=== PATIENT | female | born 1960 | race Caucasian/White ===

== ENCOUNTER 2016-09-11 14:56 | Emergency (ER) | payer OTHER ==
[~2016-09-11] VITALS: Ht 167.6 cm; Wt 67.0 kg
[2016-09-11 15:02] VITALS: BP 160/98; PULSE 81; RESP 16; TEMP 97.7; O2SAT 98
[2016-09-11 15:17] LABS: BLOOD, URINE TRACE (NEG); GLUCOSE,URINE NEG (NEG); KETONE, URINE NEG (NEG); NITRITE,URINE NEG (NEG); PH, URINE 6.5 (5.0-8.5)
[2016-09-11] MEDS ORDERED: LISI2.5T3 PO (15:17)
[2016-09-11] MEDS ORDERED: CARV3.12 PO (15:17)
[2016-09-11] MEDS ORDERED: ASPI1TAB69 PO (15:17)
[2016-09-11 15:21] LABS: URINE COLOR STRAW (YELLW/STRAW)
[2016-09-11 15:24] LABS: COMMENT (UR) CULT NOT INDICATED; CULTURE IF INDICATED CULT NOT INDICATED; SQUAMOUS EPITHELIAL CELL URINE 0-2 /hpf (0-5)
[2016-09-11] MEDS ORDERED: MACR100C2 PO (15:31)
--- NOTE | 2016-09-11 15:37 | PD ---
HPI Chief Complaint: Complaint Time Seen by Provider: 15:32 Travel History International Travel<30 days: No Contact w/Intl Traveler<30days: No Traveled to known affect area: No History of Present Illness HPI Patient is a 56-year-old female with a history of CAD and is a former smoker presenting with chief complaint of dysuria. Begin this morning. She has suprapubic pressure and increased urinary urgency and frequency. Denies pyuria , which area, vaginal being and discharge. Denies fever, chills, nausea and vomiting. No back or flank pain. She denies any history of bladder disorders. She states she's had UTIs several times today only start this way. Last one was several years ago and she required hospitalization. She recently relocated here and does not currently have a PCP. PFSH Past Medical History Hx Anticoagulant Therapy: Yes (ECOTRIN DAILY) Cardiovascular Problems: Yes ([place]) Diabetes: No Diminished Hearing: No Hypertension: Yes Immunizations Current: Yes Myocardial Infarction: Yes Tetanus Vaccination: > 5 Years Influenza Vaccination: No ?: Not Menopausal: Yes Dilation and Curettage (D&C): Yes Social History Alcohol Use: No Tobacco Use: No Substance Use: No Allergies-Medications (Allergen,Severity, Reaction): Coded Allergies: Codeine (Verified Allergy, Severe, 09/11/16) Uncoded Allergies: METHAGENE (Allergy, Severe, 09/11/16) Reported Meds & Prescriptions Reported Meds & Active Scripts Active Reported Carvedilol 3.125 Mg Tab 3.125 Mg PO DAILY Lisinopril 2.5 Mg Tab 1.25 Mg PO DAILY Aspirin 81 Mg Tabdr 81 Mg PO DAILY Review of Systems Except as stated in HPI: all other systems reviewed are Neg Physical Exam Narrative GENERAL: Well-developed and well-nourished adult female in no acute distress. SKIN: Warm and dry. Good turgor without tenting. HEAD: Normocephalic and atraumatic. ENT: Buccal mucosa pink and moist. Oropharynx free of erythema, tonsillar hypertrophy, masses, swelling, asymmetry and exudates. Uvula midline and airway patent. NECK: Supple, no midline tenderness, crepitus or step-offs. Trachea midline, no JVD. No cervical or facial lymphadenopathy. CARDIOVASCULAR: Regular rate and rhythm without murmurs, rubs, clicks or gallops. Radial and posterior tibial pulses 2+ bilaterally. No pedal edema. RESPIRATORY: Clear to auscultation bilaterally with symmetrical rise and fall, no distress or use of accessory muscles. GASTROINTESTINAL: Non-tender, non-distended. Normal bowel sounds all 4 quadrants. No masses or organomegaly present. Negative bilateral CVA tenderness. MUSCULOSKELETAL: No gait disturbances. Patient freely moving all four extremities spontaneously. Extremities without clubbing, cyanosis, or edema. No obvious deformities. NEUROLOGIC: CN II-XII grossly intact. Awake and alert. Motor grossly within normal limits. Normal speech. PSYCHIATRIC: Appropriate mood and affect; insight and judgment normal. Data Data Last Documented VS Vital Signs Date Time Temp Pulse Resp B/P Pulse Ox O2 Delivery O2 Flow Rate FiO2 09/11/16 15:02 97.7 81 16 160/98 98 Orders Urinalysis - C+S If Indicated (09/11/16 15:02) Labs Laboratory Tests Test 09/11/16 15:05 Urine Color STRAW Urine Turbidity CLEAR Urine pH 6.5 Urine Specific [place] 1.006 Urine Protein NEG mg/dL Urine Glucose (UA) NEG mg/dL Urine Ketones NEG mg/dL Urine Occult Blood TRACE Urine Nitrite NEG Urine Bilirubin NEG Urine Leukocyte Esterase NEG Urine WBC /hpf Urine Squamous Epithelial 0-2 /hpf Cells Microscopic Urinalysis Comment CULT NOT INDICATED MDM Medical Decision Making Medical Screen Exam Complete: Yes Emergency Medical Condition: Yes Differential Diagnosis UTI versus interstitial cystitis versus overactive bladder Narrative Course Patient is a 56-year-old female presenting with dysuria and increased urinary urgency that began this morning. She is afebrile, nontoxic and has no complaints suggestive of pyelonephritis. No vaginal symptoms. Urinalysis shows trace blood was otherwise unremarkable. I discussed with the patient that this could be interstitial cystitis her overactive bladder she states that this is the course of her UTIs always and she is concerned because they progress rapidly. Given the symptoms began this morning and it is highly suggestive of UTI and she recently moved here and does not have a PCP I will give the patient Macrobid to cover for infectious etiology however is pain to the patient that given her history of tobacco use that hematuria without clear signs of infection is concerning for malignancy. Given her age overactive bladder is a possibility as well. She will attempt to establish with PCP this week.See discharge paperwork for further instructions. The plan was discussed with the patient who acknowledged their understanding and agreement. Reinforced the follow-up with primary care is critically important. Patient instructed on emergent conditions that should prompt return to ED. Diagnosis Primary Impression: Dysuria Additional Impression: Hematuria Patient Instructions: Dysuria (ED), General Instructions, Hematuria (ED) Additional Instructions: Take medications as prescribed Drink lots of fluids to stay well-hydrated Very important to establish with a PCP this week and have the hematuria evaluated given your history of smoking Return to the ED for any acute worsening of symptoms including fever, chills, nausea or vomiting, back or flank pain Med/Other Pt SpecificInfo: Prescription(s) given Scripts Nitrofurantoin Monohydrate Macrocrystals (Macrobid)100 Mg Qol498 Mg PO BID 5 Days Prov:Anatoly Meredith MD 09/11/16 Disposition: 01 DISCHARGE HOME Condition: Stable Alan Farrar III Sep 11, 2016 15:36
[2016-10-06] MEDS ORDERED: ASPI-147 PO (08:41)
[2016-10-06] MEDS ORDERED: ESTR0.62 VAGINAL (09:27)
[2017-01-18] MEDS ORDERED: ASPI-147 PO (11:23)
[2017-01-18] MEDS ORDERED: CARV3.12 PO (11:23)
[2017-01-18] MEDS ORDERED: LISI2.5T3 PO (11:23)
== END 2016-09-11 15:40 | disposition home or self-care (01) ==
LOC: PHEFT 14:56
DX: R30.0 Dysuria (principal); R31.9 Hematuria, unspecified; Z87.891 Personal history of nicotine dependence; I25.10 Atherosclerotic heart disease of native coronary artery without angina pectoris; I25.2 Old myocardial infarction; I10 Essential (primary) hypertension
CPT/HCPCS: 81001; 99283